=== PATIENT | male | born 1985 | race Caucasian/White ===

== ENCOUNTER → 2018-08-08 | Outpatient (CLI) | payer OTHER ==
[~2018-08-08] MED LIST: CIPRO500 MG PO; DOXYCYCLINE MO100 MG PO; KEFLEX500 MG PO; ULTRAM50 MG PO
== END | disposition home or self-care (01) ==
LOC: RAD 13:25
DX: M50.823 Other cervical disc disorders at C6-C7 level (principal)

== ENCOUNTER 2020-07-09 18:04 | Emergency (ER) | payer BC ==
[~2020-07-09] VITALS: Wt 86.2 kg
[2020-07-09] MEDS ORDERED: POLYTRIM 1000010 M1 OPH (18:23)
== END 2020-07-09 18:55 | disposition home or self-care (01) ==
LOC: ED 18:04
DX: H57.89 Other specified disorders of eye and adnexa (principal)

== ENCOUNTER → 2021-01-16 | Outpatient (CLI) | payer BC ==
[~2021-01-16] MED LIST changes: +POLYTRIM 1000010 M1 OPH
== END | disposition home or self-care (01) ==
LOC: US 15:00
PROVIDERS: ATTEND Urology
DX: N50.3 Cyst of epididymis (principal); Z98.52 Vasectomy status

== ENCOUNTER → 2022-11-25 | Outpatient (CLI) | payer BC | END | disposition home or self-care (01) | LOC: RAD 09:27 | PROVIDERS: ATTEND Chiropractor | DX: M54.2 Cervicalgia (principal) ==

== ENCOUNTER 2023-11-27 15:20 | Emergency (ER) | payer BC ==
[~2023-11-27] VITALS: Wt 86.2 kg
[2023-11-27] MEDS ORDERED: CEPHALEXIN500 M1 PO (18:30)
== END 2023-11-27 18:52 | disposition home or self-care (01) ==
LOC: ED 15:20
DX: S61.214A Laceration without foreign body of right ring finger without damage to nail, initial encounter (principal); Z98.890 Other specified postprocedural states; W26.8XXA Contact with other sharp object(s), not elsewhere classified, initial encounter; Y93.89 Activity, other specified; Y92.89 Other specified places as the place of occurrence of the external cause; Y99.8 Other external cause status

== ENCOUNTER 2024-06-01 14:20 | Emergency (ER) | payer BC ==
[~2024-06-01] VITALS: Ht 190.5 cm; Wt 83.9 kg
[~2024-06-01 14:20] MED LIST changes: +CEPHALEXIN500 M1 PO
[2024-06-01] MEDS ORDERED: AMOX-CLAV 875-1 EACH PO (16:18)
[2024-06-01] MEDS ORDERED: ceFAZolin sodium 1 GM VIAL IM ONE (16:20)
== END 2024-06-01 16:25 | disposition home or self-care (01) ==
LOC: ED 14:20
DX: S92.424A Nondisplaced fracture of distal phalanx of right great toe, initial encounter for closed fracture (principal); Z98.890 Other specified postprocedural states; W20.8XXA Other cause of strike by thrown, projected or falling object, initial encounter; Y93.89 Activity, other specified; Y92.009 Unspecified place in unspecified non-institutional (private) residence as the place of occurrence of the external cause; Y99.8 Other external cause status

== ENCOUNTER 2024-09-30 18:29 | Emergency (ER) | payer BC ==
[~2024-09-30] VITALS: Ht 190.5 cm; Wt 866.4 kg
[~2024-09-30 18:29] MED LIST changes: +AMOX-CLAV 875-1 EACH PO
[2024-09-30] MEDS ORDERED: Lidocaine Hydrochloride 5 ML AMP SC ONE (19:50)
[2024-09-30] MEDS ORDERED: NAPROSYN500 MG PO (22:10)
[2024-09-30] MEDS ORDERED: CEPHALEXIN500 M1 PO (22:10)
== END 2024-09-30 22:23 | disposition home or self-care (01) ==
LOC: ED 18:29
DX: S62.521A Displaced fracture of distal phalanx of right thumb, initial encounter for closed fracture (principal); S61.101A Unspecified open wound of right thumb with damage to nail, initial encounter; Z98.890 Other specified postprocedural states; W23.0XXA Caught, crushed, jammed, or pinched between moving objects, initial encounter; Y93.89 Activity, other specified; Y92.89 Other specified places as the place of occurrence of the external cause; Y99.8 Other external cause status